=== PATIENT | male | born 1995 | race Caucasian/White ===

== ENCOUNTER 2023-02-02 13:03 | Emergency (ER) | payer MEDICAID, OTHER ==
[~2023-02-02] VITALS: Ht 180.3 cm; Wt 62.6 kg
[2023-02-02 13:18] VITALS: BP 113/71; PULSE 88; RESP 20; TEMP 98.5; O2SAT 97
[2023-02-02] MEDS ORDERED: LIDOCAINE MPF 1% 10 MG/ML VIAL INJ ONE ×2 (14:20→14:45)
[2023-02-02] MEDS ORDERED: IBUP-2213 PO (15:09)
[2023-02-02] MEDS ORDERED: BACI-418 TP (15:09)
[2023-02-02] MEDS ORDERED: CEPH-588 PO (15:11)
[2023-02-02] MEDS ORDERED: BACITRACIN OINT 500 UNITS/GM PKT TP ONE (15:58)
[2023-02-02 16:04] VITALS: BP 113/71; PULSE 88; RESP 20; TEMP 98.5; O2SAT 97
== END 2023-02-02 16:05 | disposition home or self-care (01) ==
LOC: MED 13:03
DX: S91.312A Laceration without foreign body, left foot, initial encounter (principal); X58.XXXA Exposure to other specified factors, initial encounter; Y93.89 Activity, other specified; Y92.89 Other specified places as the place of occurrence of the external cause; Y99.8 Other external cause status
CPT/HCPCS: 12002; 73660; 99283; J2001

== ENCOUNTER 2023-02-06 15:37 | Emergency (ER) | payer MEDICAID ==
[~2023-02-06] VITALS: Ht 177.8 cm; Wt 72.6 kg
[~2023-02-06 15:37] MED LIST: BACI-418 TP; CEPH-588 PO; IBUP-2213 PO
[2023-02-06 15:55] VITALS: BP 100/59; PULSE 90; RESP 18; TEMP 99; O2SAT 98
[2023-02-06 17:02] VITALS: BP 100/59; PULSE 90; RESP 18; TEMP 99; O2SAT 98
== END 2023-02-06 17:01 | disposition home or self-care (01) ==
LOC: MED 15:37
DX: S91.312D Laceration without foreign body, left foot, subsequent encounter (principal); Z48.00 Encounter for change or removal of nonsurgical wound dressing; X58.XXXD Exposure to other specified factors, subsequent encounter
CPT/HCPCS: 99281

== ENCOUNTER 2023-02-15 16:31 | Emergency (ER) | payer MEDICAID ==
[~2023-02-15] VITALS: Ht 167.6 cm; Wt 59.0 kg
[2023-02-15 16:56] VITALS: BP 122/76; PULSE 89; RESP 18; TEMP 98; O2SAT 98
== END 2023-02-15 20:03 | disposition home or self-care (01) ==
LOC: MED 16:31
DX: S91.312D Laceration without foreign body, left foot, subsequent encounter (principal); Z48.00 Encounter for change or removal of nonsurgical wound dressing; Z79.2 Long term (current) use of antibiotics; Z79.1 Long term (current) use of non-steroidal anti-inflammatories (NSAID); Z88.0 Allergy status to penicillin; X58.XXXD Exposure to other specified factors, subsequent encounter
CPT/HCPCS: 99281

== ENCOUNTER 2023-02-18 19:30 | Emergency (ER) | payer MEDICAID ==
[~2023-02-18] VITALS: Ht 182.9 cm; Wt 63.5 kg
[2023-02-18 19:55] VITALS: BP 121/69; PULSE 56; RESP 16; TEMP 98.4; O2SAT 98
[2023-02-18 20:59] VITALS: BP 121/69; PULSE 56; RESP 16; TEMP 98.4; O2SAT 98
== END 2023-02-18 20:59 | disposition home or self-care (01) ==
LOC: MED 19:30
DX: S91.115D Laceration without foreign body of left lesser toe(s) without damage to nail, subsequent encounter (principal); Z48.02 Encounter for removal of sutures; Z79.2 Long term (current) use of antibiotics; Z79.1 Long term (current) use of non-steroidal anti-inflammatories (NSAID); Z88.0 Allergy status to penicillin; X58.XXXD Exposure to other specified factors, subsequent encounter
CPT/HCPCS: 99281

== ENCOUNTER 2023-04-06 21:44 | Emergency (ER) | payer MEDICAID ==
[~2023-04-06] VITALS: Ht 180.3 cm; Wt 66.7 kg
[2023-04-06 21:53] VITALS: BP 115/90; PULSE 69; RESP 16; TEMP 97.6; O2SAT 96
[2023-04-06 23:17] LABS: FLU A ANTIGEN negative (NEGATIVE); FLU B ANTIGEN NEGATIVE (NEGATIVE)
[2023-04-06] MEDS ORDERED: METH4TAB1 PO (23:45)
[2023-04-06] MEDS ORDERED: ALBU0.0912 INH (23:46)
[2023-04-06] MEDS ORDERED: BENZ200C4 PO (23:46)
[2023-04-06] MEDS ORDERED: PROM118S5 PO (23:46)
[2023-04-06] MEDS ORDERED: MUC600 PO (23:46)
[2023-04-06 23:50] VITALS: BP 118/80; PULSE 75; RESP 16; TEMP 98; O2SAT 98
== END 2023-04-06 23:50 | disposition home or self-care (01) ==
LOC: MED 21:44
DX: J20.9 Acute bronchitis, unspecified (principal); Z20.822 Contact with and (suspected) exposure to COVID-19; F12.90 Cannabis use, unspecified, uncomplicated; Z79.899 Other long term (current) drug therapy; Z79.2 Long term (current) use of antibiotics; Z79.1 Long term (current) use of non-steroidal anti-inflammatories (NSAID); Z88.0 Allergy status to penicillin
CPT/HCPCS: 99283

== ENCOUNTER 2023-10-17 21:31 | Emergency (ER) | payer MEDICAID ==
[~2023-10-17] VITALS: Ht 180.3 cm; Wt 65.8 kg
[~2023-10-17 21:31] MED LIST changes: +ALBU0.0912 INH; +BENZ200C4 PO; +METH4TAB1 PO; +MUC600 PO; +PROM118S5 PO
[2023-10-17 21:36] VITALS: BP 118/79; PULSE 92; RESP 18; TEMP 97.7; O2SAT 97
== END 2023-10-17 22:01 | disposition home or self-care (01) ==
LOC: MED 21:31
DX: S59.911A Unspecified injury of right forearm, initial encounter (principal); Z79.1 Long term (current) use of non-steroidal anti-inflammatories (NSAID); Z79.899 Other long term (current) drug therapy; Z88.1 Allergy status to other antibiotic agents; X58.XXXA Exposure to other specified factors, initial encounter; Y93.89 Activity, other specified; Y92.89 Other specified places as the place of occurrence of the external cause; Y99.8 Other external cause status
CPT/HCPCS: 99282

== ENCOUNTER 2023-11-27 11:00 | Emergency (ER) | payer MEDICAID ==
[~2023-11-27] VITALS: Ht 180.3 cm; Wt 64.4 kg
[2023-11-27 11:48] VITALS: BP 107/71; PULSE 69; RESP 18; TEMP 98
[2023-11-27] MEDS ORDERED: IBUP-2213 PO (12:15)
== END 2023-11-27 12:30 | disposition home or self-care (01) ==
LOC: MED 11:00
DX: M79.631 Pain in right forearm (principal); R22.31 Localized swelling, mass and lump, right upper limb; Z79.899 Other long term (current) drug therapy; Z88.0 Allergy status to penicillin
CPT/HCPCS: 99281